=== PATIENT | male | born 1935 | race Caucasian/White ===

== ENCOUNTER → 2020-07-02 14:04 | Outpatient (BNVA) | payer MEDICARE, SELFPAY | PROVIDERS: PCP Internal Medicine; Visit Provider Internal Medicine | DX: J44.9 Chronic obstructive pulmonary disease, unspecified (principal); I25.10 Atherosclerotic heart disease of native coronary artery without angina pectoris; I35.9 Nonrheumatic aortic valve disorder, unspecified; R06.00 Dyspnea, unspecified | CPT/HCPCS: 99202 ==

== ENCOUNTER 2020-07-14 07:44 | Outpatient (REF) | payer MEDICARE, SELFPAY ==
--- NOTE | 2020-07-14 17:19 | PFT_ITS ---
Forced vital capacity and FEV1 are normal. However, FEV1/FVC ratio is decreased. [id number] moderately decreased. MVV normal. Postbronchodilator therapy, there is mild but significant improvement in [id number]. Total lung capacity and residual volume normal. Diffusion capacity markedly decreased. CONCLUSION: Mild small airway obstructive disorder, which corrects to normal after bronchodilator therapy. This finding may be consistent with mild degree of bronchial asthma/reactive airway. Diffusion capacity is decreased out of proportion to the other values. This may be due to technical reason or nonpulmonary factors and for this, clinical correlation is recommended. MD TITA Ovalle/MODL / [id number]
== END 2020-07-14 07:45 | disposition home or self-care (01) ==
LOC: HO.RESP 07:44
PROVIDERS: PCP Internal Medicine; Visit Provider Internal Medicine
DX: R06.02 Shortness of breath (principal); J44.9 Chronic obstructive pulmonary disease, unspecified; R06.00 Dyspnea, unspecified
CPT/HCPCS: 94060; 94727; 94729

== ENCOUNTER → 2020-07-21 09:58 | Outpatient (BNVA) | payer MEDICARE, SELFPAY | PROVIDERS: PCP Internal Medicine; Visit Provider Internal Medicine | DX: I35.9 Nonrheumatic aortic valve disorder, unspecified (principal); J44.9 Chronic obstructive pulmonary disease, unspecified; R06.00 Dyspnea, unspecified | CPT/HCPCS: 99212 ==

== ENCOUNTER → 2021-07-07 10:00 | Outpatient (BNVA) | payer MEDICARE, SELFPAY | PROVIDERS: PCP Internal Medicine; Visit Provider Internal Medicine | DX: J44.9 Chronic obstructive pulmonary disease, unspecified (principal); R06.00 Dyspnea, unspecified; I25.10 Atherosclerotic heart disease of native coronary artery without angina pectoris | CPT/HCPCS: 94010; 99212 ==

== ENCOUNTER → 2021-09-01 14:41 | Outpatient (BNVA) | payer MEDICARE, SELFPAY | PROVIDERS: PCP Internal Medicine; Visit Provider Internal Medicine | DX: J44.9 Chronic obstructive pulmonary disease, unspecified (principal); R06.00 Dyspnea, unspecified; I35.9 Nonrheumatic aortic valve disorder, unspecified | CPT/HCPCS: 99212 ==